=== PATIENT | female | born 1950 | race Caucasian/White ===

== ENCOUNTER → 2021-10-06 | Outpatient (CLI) | payer MEDICARE ==
[~2021-10-06] VITALS: Ht 167.6 cm; Wt 69.6 kg
[~2021-10-06] MED LIST: AMITRIPTYLINE H50 M1 PO; ASPIRIN 81M81 MG/TA2 PO; B-121000 MCG PO; CARAFATE 1GM1 G PO; FIBERCON PO; GLUCOPHAGE1000 MG PO; GLUCOTROL10 MG PO; LANTUS SOLOS100 U/ML SQ; LIPITOR 10MG10 MG PO; MAGNEBIND 4001 EAC1 PO; MULTIPLE VITAMI1 TA5 PO; OSCAL 500 TAB500 MG PO; PRINIVIL5 MG PO; PROLIA60 MG/ML SQ; PROTONIX 40MG T40 MG PO; THE MEDICINE S200 M2 PO; TIROSINT50 MC1 PO; VITAMIN D31000 I1 PO
[2021-10-06 06:57] VITALS: BP 147/72; PULSE 91; TEMP 97.3
--- NOTE | 2021-10-06 08:40 | NUR ---
PROCEDURE WAS CANCELLED BY DR BARBOZA
== END ==
LOC: COL.RAD 06:29
DX: C78.7 Secondary malignant neoplasm of liver and intrahepatic bile duct (principal); C80.1 Malignant (primary) neoplasm, unspecified

== ENCOUNTER 2021-12-14 12:09 | Emergency (ER) | payer MEDICARE, OTHER ==
[~2021-12-14] VITALS: Ht 167.6 cm; Wt 70.5 kg
[2021-12-14 12:24] VITALS: TEMP 98.2
[2021-12-14 12:41] LABS: BASO # 0.2 K/mm3 (0.0-0.2); EOS # 0.2 K/mm3 (0.0-0.7); EOS % 1.7 % (0.0-4.0); GRAN # 8.7 K/mm3 (1.4-6.5); GRAN % 73.8 % (42.2-75.2); LYMPH # 1.5 K/mm3 (1.2-3.4); LYMPH % 12.9 % (20.0-51.0); MEAN CELL VOLUME 93 fl (80.0-100.0); MEAN CORPUSCULAR HGB CONC 31 g/dl (33.0-37.0); MEAN PLATELET VOLUME 9.7 fl (7.4-10.4); MONO % 8.5 % (1.7-9.3); PLATELET COUNT 647 K/mm3 (130-400); RED BLOOD COUNT 3.27 M/mm3 (4.10-5.30); REDCELL DISTRIBUTION WIDTH-CV 17.8 % (11.5-14.5)
[2021-12-14 12:42] LABS: HEMATOCRIT 30.3 % (37.0-47.0); HEMOGLOBIN 9.5 g/dl (12.5-16.0); MEAN CORPUSCULAR HEMOGLOBIN 29 pg (27-31)
[2021-12-14 12:59] LABS: ALBUMIN 2.8 gm/dL (3.4-4.8); BILIRUBIN,TOTAL 0.6 mg/dL (0.2-1.2); CALCIUM 8.6 mg/dL (8.4-10.2); CREATININE, serum 1.03 mg/dL (0.57-1.11); POTASSIUM 4.5 mmol/L (3.5-4.5); TOTAL PROTEIN 6.1 gm/dL (6.2-8.1)
[2021-12-14 13:48] LABS: COLLECTION METHOD CLEAN CATCH
[2021-12-14 14:10] LABS: MUCOUS Present (NOT PRESENT); PH 5 (5-8); URINE APPEARANCE Clear (CLEAR/HAZY); URINE BACTERIA None Seen /hpf (NONE SEEN); URINE BILIRUBIN Negative (NEGATIVE); URINE BLOOD Negative (NEGATIVE); URINE COLOR Yellow (YELLOW); URINE GLUCOSE 1+ (NEGATIVE); URINE KETONE Negative (NEGATIVE); URINE LEUKOCYTE ESTERASE Negative (NEGATIVE); URINE NITRATE Negative (NEGATIVE); URINE PROTEIN(semi-quant) Negative (NEGATIVE); URINE UROBILINOGEN Negative (NEGATIVE)
[2021-12-14 17:46] VITALS: BP 140/78; PULSE 68
== END 2021-12-14 17:46 | disposition home or self-care (01) ==
LOC: COL.ER 12:09
PROVIDERS: Emergency Medicine
DX: K59.00 Constipation, unspecified (principal); C25.9 Malignant neoplasm of pancreas, unspecified
CPT/HCPCS: J1170; J2405; J7030; Q9967